=== PATIENT | male | born 1960 | race Caucasian/White ===

== ENCOUNTER 2023-07-16 08:04 | Emergency (ER) | payer MEDICAID ==
[2023-07-16] MEDS ORDERED: Orphenadrine 60 MG/2 ML Inj IM ONE (08:33)
[2023-07-16] MEDS ORDERED: Ketorolac 60 MG/2 ML SDV IM ONE (08:34)
[2023-07-16] MEDS ORDERED: Orphenadrine 60 MG/2 ML Inj ONE (08:36)
[2023-07-16] MEDS ORDERED: Lidocaine 5% 700 MG Patch TOP ONE (09:13)
== END 2023-07-16 10:20 | disposition home or self-care (01) ==
LOC: LB.ED 08:04
DX: M62.830 Muscle spasm of back (principal)
CPT/HCPCS: 96372; 99283; A9270-GY; J1885; J2360

== ENCOUNTER 2025-05-03 18:18 | Emergency (ER) | payer MEDICAID ==
[2025-05-03] MEDS: Ketorolac 15 MG/ML SDV IM ONE (18:48)
[2025-05-03 19:01] LABS: APPEARANCE,URINE CLEAR (CLEAR); GLUCOSE,URINE NEGATIVE (NEGATIVE); OCCULT BLOOD,URINE NEGATIVE (NEGATIVE)
== END 2025-05-03 20:42 | disposition home or self-care (01) ==
LOC: LB.ED 18:18
DX: N20.0 Calculus of kidney (principal); F17.210 Nicotine dependence, cigarettes, uncomplicated; Z79.899 Other long term (current) drug therapy
CPT/HCPCS: 74176; 81003; 96372; 99284; A9270-GY; J1885

== ENCOUNTER 2025-07-08 08:55 | Emergency (ER) | payer MEDICAID ==
[2025-07-08 10:14] LABS: INFLUENZA A NAA NEGATIVE (NEGATIVE); INFLUENZA B NAA NEGATIVE (NEGATIVE); RESPIRATORY SYNCYTIAL VIR NAA NEGATIVE (NEGATIVE)
[2025-07-08 10:15] LABS: CORONAVIRUS COVID-19 NAA NEGATIVE (NEGATIVE)
[2025-07-08 10:36] LABS: BASOPHILS ABSOLUTE AUTO 0.04 K/uL (0.02-0.10); BASOPHILS PERCENT AUTO 0.3 % (0.0-0.5); EOSINOPHILS ABSOLUTE AUTO 0.06 K/uL (0.04-0.40); EOSINOPHILS PERCENT AUTO 0.4 % (1.0-5.0); LYMPHOCYTES ABSOLUTE AUTO 0.89 K/uL (1.50-4.00); LYMPHOCYTES PERCENT AUTO 5.7 % (20.0-40.0); MEAN PLATELET VOLUME 9.5 fL (6.0-10.0); MONOCYTES ABSOLUTE AUTO 1.13 K/uL (0.20-0.80); MONOCYTES PERCENT AUTO 7.2 % (3.0-10.0); NEUTROPHILS ABSOLUTE AUTO 13.60 K/uL (2.00-7.50); NEUTROPHILS PERCENT AUTO 86.4 % (45.0-70.0); PLATELET COUNT,PLT 263 K/uL (150-400); RED BLOOD CELL COUNT 4.86 M/uL (4.50-6.50); RED CELL DISTRIBUTION WIDTH 13.6 % (11.0-16.0); WHITE BLOOD CELL COUNT,WBC 15.7 K/uL (4.0-11.0)
[2025-07-08 10:51] LABS: A/G RATIO 0.7 (0.8-2.0); ALANINE AMINOTRANSFERASE,ALT 64.0 U/L (12-78); ASPARTATE AMNIOTRANSFERASE,AST 28.0 U/L (15-37); BILIRUBIN TOTAL 1.2 mg/dL (0.0-1.0); BLOOD UREA NITROGEN,BUN 21.0 mg/dL (8-26); CARBON DIOXIDE,CO2 23.5 mmol/L (21.0-32.0); CHLORIDE,CL 102.0 mmol/L (98-107); CREATININE 0.91 mg/dL (0.70-1.30); EST CRCL DRUG DOSING (CG) 85.79 mL/min; ESTIMATED GFR 95.0 mL/min (>60); GLUCOSE RANDOM 150.0 mg/dL (74-100); POTASSIUM,K 4.4 mmol/L (3.5-5.1); PROTEIN TOTAL,TP 6.9 g/dL (6.4-8.2); SODIUM,NA 136.0 mmol/L (136-145)
== END 2025-07-08 11:15 | disposition home or self-care (01) ==
LOC: LB.ED 08:55
DX: J44.1 Chronic obstructive pulmonary disease with (acute) exacerbation (principal); R06.02 Shortness of breath; Z72.0 Tobacco use
CPT/HCPCS: 36415; 71046; 80053; 85025; 87637; 94640; 99285; J7512; J7620; Q0144; A9270-GY